=== PATIENT | male | born 1965 | race Caucasian/White ===

== ENCOUNTER 2019-01-27 02:54 | Inpatient (IN) | payer BC ==
[~2019-01-27] VITALS: Ht 172.7 cm; Wt 93.7 kg
[~2019-01-27 02:54] MED LIST: AMOXICILLIN500 MG PO; CLARITHROMYCIN500 M1 PO; LISINOPRIL20 MG PO; PRILOSEC20 MG PO
[2019-01-27 03:55] LABS: CARBON DIOXIDE 21.2 mmol/L (21-32); CHLORIDE SERUM 107 mmol/L (98-107); CREATININE SERUM 1.4 mg/dL (0.7-1.3); GFR1 57 mL/min; GLUCOSE SERUM 129 mg/dL (74-106); POTASSIUM SERUM 3.9 mmol/L (3.5-5.1); SODIUM SERUM 138 mmol/L (136-145)
[2019-01-27 04:00] LABS: ALKALINE PHOSPHATASE 284 U/L (46-116); ALT/SGPT 48 U/L (16-63); AST/SGOT 99 U/L (15-37); BILIRUBIN TOTAL 0.4 mg/dL (0.20-1.00)
[2019-01-27 04:01] LABS: TOTAL PROTEIN, SERUM 5.7 g/dL (6.4-8.2)
[2019-01-27 04:02] LABS: BASOPHIL % 0 % (0-2); PLATELET COUNT 70 x10^3mcL (130-400); RED CELL DISTRIBUTION WIDTH 15.8 % (11.5-14.5)
[2019-01-27 04:27] LABS: microscopic required? YES; urine erythrocyte NEGATIVE (NEGATIVE)
[2019-01-27] MEDS ORDERED: METFORMIN HCL1000 MG PO (04:42)
[2019-01-27] MEDS ORDERED: LOSARTAN POTASS50 M1 (04:42)
[2019-01-27] MEDS ORDERED: SIMVASTATIN20 M1 PO (04:43)
[2019-01-27] MEDS ORDERED: AMLODIPINE BESYL5 M2 (04:43)
[2019-01-27] MEDS ORDERED: GLIMEPIRIDE4 M1 PO (04:45)
[2019-01-27 05:02] LABS: MAGNESIUM 1.8 mg/dL (1.8-2.4); PHOSPHOROUS 2.8 mg/dL (2.5-4.9)
[2019-01-27 09:51] VITALS: BP 129/93
[2019-01-27 11:05] VITALS: BP 117/70
[2019-01-27 15:05] VITALS: BP 117/63
[2019-01-27 19:01] VITALS: BP 98/53
[2019-01-28 00:01] VITALS: BP 106/66
[2019-01-28 04:01] VITALS: BP 101/61
[2019-01-28 05:35] LABS: BASOPHIL % 0.3 % (0-2)
[2019-01-28 05:44] LABS: PLATELET COUNT 66 x10^3mcL (130-400); RED CELL DISTRIBUTION WIDTH 16.4 % (11.5-14.5)
[2019-01-28 05:48] LABS: CALCIUM 7.8 mg/dL (8.5-10.1); CARBON DIOXIDE 18.5 mmol/L (21-32); CREATININE SERUM 1.4 mg/dL (0.7-1.3); MAGNESIUM 1.9 mg/dL (1.8-2.4); PHOSPHOROUS 3.5 mg/dL (2.5-4.9); POTASSIUM SERUM 3.9 mmol/L (3.5-5.1)
[2019-01-28 07:24] VITALS: BP 108/55
[2019-01-28 07:36] VITALS: Ht 172.7 cm; Wt 93.7 kg
[2019-01-28] MEDS ORDERED: MEGL PO (11:35)
[2019-01-28 11:40] VITALS: BP 125/71
== END 2019-01-28 12:34 | disposition home or self-care (01) | DRG 637 ==
LOC: ED 02:54 → IC 04:36 → DU 04:36 → ED 04:36 → IC 09:40
PROVIDERS: Emergency Medicine; ADMIT Internal Medicine
DX: E11.649 Type 2 diabetes mellitus with hypoglycemia without coma (principal); E43 Unspecified severe protein-calorie malnutrition; G93.41 Metabolic encephalopathy; C22.9 Malignant neoplasm of liver, not specified as primary or secondary; I10 Essential (primary) hypertension; Z88.8 Allergy status to other drugs, medicaments and biological substances; D63.8 Anemia in other chronic diseases classified elsewhere; E78.5 Hyperlipidemia, unspecified; F17.210 Nicotine dependence, cigarettes, uncomplicated; N17.0 Acute kidney failure with tubular necrosis; R74.0 Nonspecific elevation of levels of transaminase and lactic acid dehydrogenase [LDH]; E83.51 Hypocalcemia; T38.3X5A Adverse effect of insulin and oral hypoglycemic [antidiabetic] drugs, initial encounter; Y92.89 Other specified places as the place of occurrence of the external cause; Z83.3 Family history of diabetes mellitus; Z82.49 Family history of ischemic heart disease and other diseases of the circulatory system; Z68.26 Body mass index [BMI] 26.0-26.9, adult; Z79.899 Other long term (current) drug therapy
CPT/HCPCS: 82962; G0480; J2354; J2405; J3490; J7040; J7042; Q0092